=== PATIENT | male | born 1955 | race Caucasian/White ===

== ENCOUNTER 2023-04-18 23:08 | Emergency (ER) | payer OTHER, SELFPAY ==
[2023-04-18 23:30] VITALS: BP 153/82; PULSE 86; RESP 24; TEMP 37.4; O2SAT 95; BMI 43.4
--- NOTE | 2023-04-18 23:44 | ED_ITS ---
HPI - General Adult General Chief complaint: Cough Stated complaint: Feeling Ill Time Seen by Provider: 04/18/23 23:30 History of Present Illness HPI narrative: This 67-year-old male comes in reporting generalized malaise and cough that began yesterday. He states that he does have some in nasal congestion and mild sore throat. He arrives here with normal vital signs. He does not report any fever. He states that he feels a bit lightheaded at times and has generalized weakness. Related Data Home Medications Medication Instructions Recorded Confirmed aripiprazole 30 mg tablet 30 mg PO DAILY 04/18/23 04/18/23 carvedilol 25 mg tablet 25 mg PO BID 04/18/23 04/18/23 levothyroxine 137 mcg tablet 137 mcg PO DAILY 04/18/23 04/18/23 quetiapine 50 mg tablet 50 mg PO QPM 04/18/23 04/18/23 venlafaxine 150 mg 150 mg PO DAILY 04/18/23 04/18/23 capsule,extended release 24 hr venlafaxine 75 mg capsule,extended 75 mg PO DAILY 04/18/23 04/18/23 release 24 hr Allergies Allergy/AdvReac Type Severity Reaction Status Date / Time No Known Drug Allergies Allergy Verified 04/18/23 23:33 Review of Systems Status of ROS: Reports: 10 or more systems reviewed and unremarkable except as noted in History and below Narrative: Constitutional: No fevers, no weight gain or loss. Eyes: No discharge. No vision changes. HENT: Nasal congestion and mild sore throat. No report of ear pain. Cardiovascular: No chest pain, no palpitations. Respiratory: No shortness of breath, no wheezes. He does have a cough. Gastrointestinal: No abdominal pain, no vomiting, no diarrhea. Genitourinary: No dysuria, no hematuria. Musculoskeletal: Normal range of motion. Skin: No rashes, no pruritis. Neurological: No dizziness, weakness, sensory change, speech change. Endo/Heme/Allergies: No bruising or bleeding. No polydipsia. Pysch: no suicidality, no anxiety, no insomnia. All other systems reviewed and are negative. [facility] Social History (System 10/29/21 @ 09:31 by Lay Barron) Smoking Status: Never smoker Do you use any of these nicotine containing products: None Second hand tobacco smoke exposure: No How often do you have a drink containing alcohol: never AUDIT-C Alcohol total score: 0 Non-prescribed substance use: denies use service: No Exam Narrative: Exam Narrative: Constitutional: Well-developed, well-nourished, no acute distress. HEENT: Normocephalic, atraumatic. Neck: Normal range of motion. Nontender. Supple. Heart: Regular. No murmurs. Normal rate. Intact distal pulses. Lungs: Clear to auscultation. No chest discomfort. No wheezes, rhonchi, or rales. Abdomen: Normal bowel sounds. Nontender. No rebound tenderness. Genitalia: Deferred. Back: No midline tenderness. Normal range of motion. Extremities: Normal range of motion. No injury. Skin: Intact. No rash. Warm. No erythema or pallor. Neurologic: No altered sensation. No weakness. Alert and oriented. Psychiatric: No suicidality. No anxiety or depression. No insomnia. Nursing notes and vitals signs are reviewed. Const: Vital Signs, click to edit/add: Vital Signs - 24 hr 04/18/23 23:30 Temperature 99.3 F Pulse Rate [Pulse Oximeter] 86 Respiratory Rate 24 Blood Pressure [Ri ght Upper Arm] 153/82 H Pulse Oximetry 95 Oxygen Delivery Me thod Room Air Course Vital Signs Vital signs: Initial Vital Signs Temperature 99.3 F 04/18/23 23:30 Temperature Source Temporal Artery Scan 04/18/23 23:30 Pulse Rate 86 04/18/23 23:30 Pulse Rhythm Regular 04/18/23 23:30 Pulse Strength 3+ Normal 04/18/23 23:30 Respiratory Rate 24 04/18/23 23:30 Blood Pressure 153/82 H 04/18/23 23:30 Blood Pressure Mean 105 04/18/23 23:30 Blood Pressure Position Sitting 04/18/23 23:30 Pulse Oximetry 95 04/18/23 23:30 Oxygen Delivery Method Room Air 04/18/23 23:30 Vital Signs Temperature 99.3 F 04/18/23 23:30 Pulse Rate 86 04/18/23 23:30 Respiratory Rate 24 04/18/23 23:30 Blood Pressure 153/82 H 04/18/23 23:30 Pulse Oximetry 95 04/18/23 23:30 Oxygen Delivery Method Room Air 04/18/23 23:30 Temperature 99.3 F 04/18/23 23:30 Pulse Rate 86 04/18/23 23:30 Respiratory Rate 24 04/18/23 23:30 Blood Pressure 153/82 H 04/18/23 23:30 Pulse Oximetry 95 04/18/23 23:30 Oxygen Delivery Method Room Air 04/18/23 23:30 Medications Administered Medications: Discontinued Medications Generic Name Dose Route Start Last Admin Trade Name Mahamed PRN Reason Stop Dose Admin Dexamethasone 10 mg 04/18/23 23:41 04/18/23 23:50 Dexamethasone 10 Mg/Ml Inj PO 04/18/23 23:42 10 mg ONCE ONE Administration Medical Decision Making MDM Narrative Medical decision making narrative: This patient comes in with cough and generalized malaise as described above. A nasal pharyngeal swab is obtained and results are pending at the end of my shift. Dr. Rodriguez will look after results and prescribe Tamiflu if he is positive for influenza. He did receive an oral dose of dexamethasone 10 mg. Discharge Plan Discharge Clinical Impression: Acute upper respiratory infection Patient Disposition: Home, Self-Care Condition: Unchanged Additional Instructions: Use [id number] medicines as needed and directed. Follow up with MD return if worsening. Prescriptions: No Action levothyroxine 137 mcg tablet 137 mcg PO DAILY carvedilol 25 mg tablet 25 mg PO BID aripiprazole 30 mg tablet 30 mg PO DAILY venlafaxine 75 mg capsule,extended release 24hr 75 mg PO DAILY venlafaxine 150 mg capsule,extended release 24hr 150 mg PO DAILY quetiapine 50 mg tablet 50 mg PO QPM Follow Up/Referrals: Edmond Rene MD [Primary Care Provider] - Stand Alone Forms: [employer] Info Instructions
[2023-04-18] MEDS: dexAMETHasone 10 MG/ML inj PO (23:50)
[2023-04-19 00:25] LABS: PCR FLU A POSITIVE PCR FLU A (Negative); PCR FLU B Negative PCR FLU B (Negative); PCR RSV Negative PCR RSV (Negative); SARS PCR* Negative SARS-CoV-2 (Negative)
== END 2023-04-19 00:35 | disposition home or self-care (01) ==
PROVIDERS: Emergency Provider Emergency Medicine Emergency Medical Services; PCP Family Medicine
DX: J06.9 Acute upper respiratory infection, unspecified (principal)
CPT/HCPCS: 87631; 99283; 99284; J1100